=== PATIENT | female | born 2000 | race Two or more races ===

== ENCOUNTER 2024-03-05 22:01 | Emergency (ER) | payer OTHER ==
[~2024-03-05] VITALS: Ht 172.7 cm; Wt 77.0 kg
[2024-03-05 22:14] VITALS: O2SAT 99
[2024-03-06] MEDS: KETOROLAC 15MG/ML VIAL IM ONE (00:35)
[2024-03-06 02:04] VITALS: BP 123/72; PULSE 78; RESP 16; TEMP 36.55848; O2SAT 99
== END 2024-03-06 02:18 | disposition home or self-care (01) ==
LOC: ER 22:01
DX: R07.81 Pleurodynia (principal); V49.9XXA Car occupant (driver) (passenger) injured in unspecified traffic accident, initial encounter; Y93.89 Activity, other specified; Y92.89 Other specified places as the place of occurrence of the external cause; Y99.8 Other external cause status
CPT/HCPCS: 71100; 99283; 81025; 96372; J1885; Z7610